=== PATIENT | male | born 1970 | race Caucasian/White ===

== ENCOUNTER 2016-07-13 12:10 | Emergency (ER) | payer MEDICAID ==
--- NOTE | 2016-07-13 14:03 | EDPHY ---
HPI/HX/ROS/PE/MDM Narrative: Chief complaint: Penis pain HPI: 45-year-old uncircumcised male presenting with increasing inability to retract his foreskin which has been progressing over the last couple of months. In the last several days has progressed to the point that he is completely unable to retract it is unable to perform basic hygiene around his glans. He is able to urinate. It is increasingly painful to attempt to retract the foreskin. He is describing some discharge and malodor. He presented to Urgent Care today and was sent here for further evaluation. Denies any fevers or chills. No scrotal swelling or pain. No erythema. Has some burning with urination. ROS: 10 point Review of Systems is negative except as noted in the HPI. Physical exam: Gen: [Awake], [Alert], [No Distress] Genital exam: Uncircumcised male there is no erythema of the foreskin. It is strictured and unable to retract over the glans. I am able to visualize the urethral meatus without difficulty. There is scant discharge. There is no erythema or edema of the shaft of the penis. He has minimal tenderness however has significant pain with attempts to retract. Skin: No rash ED Course: Case has been discussed with Dr. Vega, urology. He would like the patient to start Lotrisone topically twice a day. Patient is to call his office to arrange for the next available appointment for further evaluation. General Time Seen by Provider: 07/13/16 13:52 Initial Vital Signs: Initial Vital Signs Temperature (C) 36.3 C 07/13/16 12:12 Heart Rate 63 07/13/16 12:12 Respiratory Rate 16 07/13/16 12:12 Blood Pressure 116/74 07/13/16 12:12 O2 Sat (%) 95 07/13/16 12:12 O2 Delivery Mode Room Air Allergies/Adverse Reactions: No Known Allergies Allergy (Unverified 07/13/16 12:14) Home Medications: Medication Instructions Recorded Clotrimazole/Betamethasone Dip 15 gm TP BID #1 cream.gm. 07/13/16 [Lotrisone Cream] Departure - Departure Disposition: Home, Routine, Self-Care Clinical Impression: Phimosis Condition: Good Instructions: Phimosis (ED) Additional Instructions: Apply Lotrisone twice a day to the affected area until your seen by Urology. Called Dr. Vega's office for the next available appointment. Return to the emergency department for increasing pain or difficulty urinating. Referrals: NONE *PRIMARY CARE P,. [Primary Care Provider] - As per Instructions Enrrique Vega MD [Medical Doctor] - As per Instructions Prescriptions: Clotrimazole/Betamethasone Dip [Lotrisone Cream] 15 gm TP BID #1 cream.gm.
[2016-07-13 14:27] VITALS: BP 118/81; PULSE 79; RESP 17; TEMP 98.2; O2SAT 96
[2016-07-13 14:29] LABS: COLOR PALE YELLOW; LEUKOCYTE ESTERASE,URINE 1+ (NEGATIVE); NITRITE,URINE NEGATIVE (NEGATIVE)
[2016-07-13 14:37] LABS: BACTERIA TRACE /hpf (NONE SEEN)
== END 2016-07-13 14:26 | disposition home or self-care (01) ==
DX: N47.1 Phimosis (principal)